=== PATIENT | female | born 1970 | race Caucasian/White ===

== ENCOUNTER 2018-03-18 19:58 | Emergency (ER) | payer SELFPAY ==
[~2018-03-18] VITALS: Ht 162.6 cm; Wt 65.9 kg
[~2018-03-18 19:58] MED LIST: MOTRIN800 MG PO
[2018-03-18 20:09] VITALS: BP 140/84
[2018-03-18 22:16] LABS: BASOPHIL (%) 0.6 % (0-1); BASOPHIL COUNT 0.1 K/uL (0-0.1); EOSINOPHIL (%) 1.5 % (0-5); EOSINOPHIL COUNT 0.2 K/uL (0-0.3); HEMATOCRIT 35.3 % (36.0-46.0); HEMOGLOBIN 11.2 G/DL (11.9-15.5); IMMATURE GRANULOCYTE (%) 0.2 % (0.0-0.7); LYMPHOCYTE (%) 23.2 % (15-42); LYMPHOCYTE COUNT 2.3 K/uL (1.0-2.8); MCH 25.1 PG (29.0-34.0); MCHC 31.7 G/DL (30.0-36.0); MCV 79.1 FL (83-99); MONOCYTE (%) 6.4 % (3-12); MONOCYTE COUNT 0.6 K/uL (0-0.8); NEUTROPHIL (%) 68.1 % (45-76); NEUTROPHIL COUNT 6.6 K/uL (1.8-6.4); PLATELET COUNT 218 K/uL (156-360); RBC DIS.WIDTH-CV 14.8 % (11.8-14.6); RBC DIS.WIDTH-SD 42.5 % (39-53); RED BLOOD COUNT 4.46 M/uL (3.80-5.20); WHITE BLOOD COUNT 9.7 K/uL (4.1-10.2)
[2018-03-18 22:33] LABS: CHLORIDE 100 mEq/L (99-109); POTASSIUM 4.1 mEq/L (3.7-5.4); SODIUM 135 mEq/L (136-147)
[2018-03-18 22:34] LABS: GLUCOSE 267 mg/dL (70-99)
[2018-03-18 22:38] LABS: CREATININE 0.8 mg/dL (0.6-1.3); GFR ESTIMATE (CALCULATED) > 59 mL/min/
[2018-03-18 22:39] LABS: UREA NITROGEN (BUN) 8 mg/dL (9-23)
== END 2018-03-18 23:18 | disposition left against medical advice (07) ==
LOC: EME 19:58
PROVIDERS: Emergency Medicine
DX: L03.116 Cellulitis of left lower limb (principal); M77.32 Calcaneal spur, left foot; E11.9 Type 2 diabetes mellitus without complications; B19.20 Unspecified viral hepatitis C without hepatic coma
CPT/HCPCS: 73630; 80048; 85025; 87040; 99281; 99284